=== PATIENT | male | born 1955 | race African-American/Black ===

== ENCOUNTER 2017-07-15 13:01 | Inpatient (IN) | payer OTHER ==
[2017-07-15 17:06] VITALS: BMI 26.6
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
[2017-07-15] MEDS ORDERED: guaiFENesin/D-METHORPHAN HB 10 ML UNIT-DOSE CUPS PO PRN (19:40)
[2017-07-15] MEDS ORDERED: hydrOXYzine PAMOATE 50 MG CAPSULE (FP) PO PRN (19:40)
[2017-07-15] MEDS ORDERED: P-EPHED 60MG/TRIPROLIDI 2.5MG TABLET PO PRN (19:40)
[2017-07-15] MEDS ORDERED: MAGNESIUM CITRATE 300 ML BOTTLE PO PRN (19:40)
[2017-07-15] MEDS ORDERED: NICOTINE POLACRILEX 2 MG GUM BC PRN (19:40)
[2017-07-15] MEDS ORDERED: MAG HYDROX/AL HYDROX/SIMETH 30 ML UNIT-DOSE CUP PO PRN (19:40)
[2017-07-15] MEDS ORDERED: LOPERAMIDE HCL 2 MG CAPSULE PO PRN (19:40)
[2017-07-15] MEDS ORDERED: MENTHOL/PHENOL 1 EACH UD MM PRN (19:40)
[2017-07-15] MEDS ORDERED: ACETAMINOPHEN 325 MG TABLET (FP) PO PRN (19:40)
[2017-07-15] MEDS ORDERED: MAGNESIUM HYDROX 2400MG/30ML ORAL SUSPENSION 30 ML CUP PO PRN (19:40)
[2017-07-15] MEDS ORDERED: TUBERCULIN PPD 5 TU/0.1ML VIAL ID ONE (20:49)
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
[2017-07-15] MEDS: THIAMINE HCL 100 MG TABLET (FP) PO SCH (22:20)
[2017-07-15] MEDS: diphenhydrAMINE HCL 50 MG CAPSULE PO PRN (22:20)
[2017-07-15 23:44] LABS: URINE APPEARANCE CLEAR; URINE BILIRUBIN NEGATIVE (NEGATIVE); URINE BLOOD NEGATIVE (NEGATIVE); URINE COLOR YELLOW; URINE GLUCOSE (UA) NEGATIVE (NEGATIVE); URINE KETONE NEGATIVE (NEGATIVE); URINE LEUK ESTERASE NEGATIVE (NEGATIVE); URINE NITRITE NEGATIVE (NEGATIVE); URINE PROTEIN NEGATIVE (NEGATIVE)
--- NOTE | 2017-07-16 09:21 | EKG ---
Test Reason : Blood Pressure : / mmHG Vent. Rate : 076 BPM Atrial Rate : 076 BPM P-R Int : 212 ms QRS Dur : 092 ms QT Int : 398 ms P-R-T Axes : 072 039 046 degrees QTc Int : 447 ms SINUS RHYTHM WITH 1ST DEGREE A-V BLOCK NO PREVIOUS ECGS AVAILABLE Confirmed by BRIDGET KOENIG MD ([id number]) on 07/16/2017 9:20:57 AM Referred By: Renetta Cruz Confirmed By:BRIDGET KOENIG MD
[2017-07-16] MEDS ORDERED: PATIENT'S OWN MEDICATION (NON-FORMULARY) (Ritonavir [Norvir -] 100 MG) PO SCH (10:00)
[2017-07-16] MEDS ORDERED: ABACAVIR SULFATE 600 MG PO SCH (10:00)
[2017-07-16 10:18] LABS: MCH 33.7 pg (25.7-33.7); MCHC 33.6 g/dl (32.0-35.9); MEAN CELL VOLUME 100.4 fl (80-96); MEAN PLT VOLUME 9.1 fl (7.5-11.1); PLATELET COUNT 89 K/MM3 (134-434); RDW 13.3 % (11.9-15.9); WHITE BLOOD COUNT 3.5 K/mm3 (4.0-10.0)
[2017-07-16] MEDS ORDERED: PATIENT'S OWN MEDICATION (NON-FORMULARY) (Atazanavir [Reyataz -] 300 MG) PO SCH (10:41)
[2017-07-16 11:40] LABS: ALBUMIN 2.5 g/dl (3.4-5.0); ALK PHOS 179 U/L (45-117); ANION GAP 10 (8-16); BILIRUBIN,TOTAL 0.9 mg/dL (0.2-1.0); CALCIUM 8.9 mg/dL (8.5-10.1); CO2 23 mmol/L (21-32); CREATININE 1.1 mg/dL (0.7-1.3); GLUCOSE,RANDOM 130 mg/dL (74-106); SGOT/AST 53 U/L (15-37); SGPT/ALT 33 U/L (12-78)
--- NOTE | 2017-07-16 12:08 | HP ---
Psychiatrist Admission - Data Date of interview: 07/16/17 Admission source: [facility] Identifying data: This is one of the several inpatient rehabilitation admissions for this 62 year old AA male who is unemployed and supported on SSI, domiciled residing in [place], he is a father of 5. Medical History: HIV since 2008 and Hep C, anemia and syphilis(treated years ago ).Smokes cigarettes when "I nahum high" 3-4 . Psychiatric History: Patient denies history of psychiatric treatment Physical/Sexual Abuse/Trauma History: Patient denies Vital Signs: Vital Signs - 24 hr 07/15/17 07/15/17 07/16/17 17:02 21:00 03:30 Temperature 97.9 F 98.2 F Pulse Rate 70 69 Respiratory 18 18 18 Rate Blood Pressure 130/80 150/97 07/16/17 06:59 Temperature 98.2 F Pulse Rate 64 Respiratory 18 Rate Blood Pressure 129/87 Allergies/Adverse Reactions: Allergies Allergy/AdvReac Type Severity Reaction Status Date / Time No Known Allergies Allergy Verified 07/15/17 19:07 Date of last physical exam: 07/15/17 Concur with the findings of this exam: Yes - Substance Abuse/Tx History Hx Alcohol Use: Yes (started atage of 20, daily 1/2 pint of vodka) Hx Substance Use: Yes Substance Use Type: Heroin (started at age of 14, dialy 2 bags.) Hx Substance Use Treatment: Yes Mental Status Exam - Mental Status Exam Alert and Oriented to: Time, Place, Person Cognitive Function: Good Patient Appearance: Well Groomed Mood: Sad Affect: Appropriate, Mood Congruent Patient Behavior: Appropriate, Cooperative Speech Pattern: Appropriate Voice Loudness: Normal Thought Process: Intact, Goal Oriented Thought Disorder: Not Present Hallucinations: Denies Suicidal Ideation: Denies Homicidal Ideation: None Insight/Judgement: Fair Sleep: Fair Appetite: Fair Muscle strength/Tone: Normal Gait/Station: Normal Psychiatric Findings - Problem List ([place] 1, 2,3) (1) Nicotine dependence Current Visit: Yes Status: Acute Qualifiers: Nicotine product type: cigarettes Substance use status: in withdrawal Qualified Code(s): F17.213 - Nicotine dependence, cigarettes, with withdrawal Comment: . (2) Alcohol dependence Current Visit: No Status: Acute Comment: . (3) Opioid dependence Current Visit: No Status: Acute Qualifiers: Substance use status: uncomplicated Qualified Code(s): F11.20 - Opioid dependence, uncomplicated Comment: . - Initial Treatment Plan Initial Treatment Plan: will continue monitor progress as needed.
[2017-07-16] MEDS: NICOTINE 14 MG/24 HOURS TOPICAL PATCH TD SCH (14:40)
[2017-07-16] MEDS: PRENATAL VITAMINS W/ FOLIC ACID TABLET (FP) PO SCH (14:40)
[2017-07-16] MEDS: NON-FORMULARY MED PO SCH (14:41)
[2017-07-16] MEDS: THIAMINE HCL 100 MG TABLET (FP) PO SCH (21:53)
[2017-07-16] MEDS: diphenhydrAMINE HCL 50 MG CAPSULE PO PRN (21:53)
[2017-07-17] MEDS: NICOTINE 14 MG/24 HOURS TOPICAL PATCH TD SCH (12:31)
[2017-07-17] MEDS: PATIENT'S OWN MEDICATION (NON-FORMULARY) (Atazanavir [Reyataz -] 300 MG) PO SCH (12:32)
[2017-07-17] MEDS: NON-FORMULARY MED PO SCH (12:32)
[2017-07-17] MEDS: PRENATAL VITAMINS W/ FOLIC ACID TABLET (FP) PO SCH (12:32)
[2017-07-17] MEDS: PATIENT'S OWN MEDICATION (NON-FORMULARY) (Ritonavir [Norvir -] 100 MG) PO SCH (12:33)
[2017-07-17] MEDS: diphenhydrAMINE HCL 50 MG CAPSULE PO PRN (21:27)
[2017-07-17] MEDS: THIAMINE HCL 100 MG TABLET (FP) PO SCH (21:27)
[2017-07-18] MEDS: NON-FORMULARY MED PO SCH (13:47)
[2017-07-18] MEDS: NICOTINE 14 MG/24 HOURS TOPICAL PATCH TD SCH (13:47)
[2017-07-18] MEDS: PRENATAL VITAMINS W/ FOLIC ACID TABLET (FP) PO SCH (13:47)
[2017-07-18] MEDS: PATIENT'S OWN MEDICATION (NON-FORMULARY) (Ritonavir [Norvir -] 100 MG) PO SCH (14:30)
[2017-07-18] MEDS: PATIENT'S OWN MEDICATION (NON-FORMULARY) (Atazanavir [Reyataz -] 300 MG) PO SCH (14:30)
[2017-07-18] MEDS: diphenhydrAMINE HCL 50 MG CAPSULE PO PRN (21:55)
[2017-07-18] MEDS: THIAMINE HCL 100 MG TABLET (FP) PO SCH (21:55)
[2017-07-19] MEDS: NICOTINE 14 MG/24 HOURS TOPICAL PATCH TD SCH (11:08)
[2017-07-19] MEDS: NON-FORMULARY MED PO SCH (11:09)
[2017-07-19] MEDS: PRENATAL VITAMINS W/ FOLIC ACID TABLET (FP) PO SCH (11:09)
[2017-07-19] MEDS: PATIENT'S OWN MEDICATION (NON-FORMULARY) (Atazanavir [Reyataz -] 300 MG) PO SCH (14:00)
[2017-07-19] MEDS: PATIENT'S OWN MEDICATION (NON-FORMULARY) (Ritonavir [Norvir -] 100 MG) PO SCH (14:00)
[2017-07-19] MEDS: diphenhydrAMINE HCL 50 MG CAPSULE PO PRN (21:41)
[2017-07-19] MEDS: THIAMINE HCL 100 MG TABLET (FP) PO SCH (21:42)
[2017-07-20] MEDS: NICOTINE 14 MG/24 HOURS TOPICAL PATCH TD SCH (10:51)
[2017-07-20] MEDS: NON-FORMULARY MED PO SCH (10:52)
[2017-07-20] MEDS: PRENATAL VITAMINS W/ FOLIC ACID TABLET (FP) PO SCH (10:52)
[2017-07-20] MEDS: PATIENT'S OWN MEDICATION (NON-FORMULARY) (Atazanavir [Reyataz -] 300 MG) PO SCH (13:11)
[2017-07-20] MEDS: PATIENT'S OWN MEDICATION (NON-FORMULARY) (Ritonavir [Norvir -] 100 MG) PO SCH (13:11)
[2017-07-20] MEDS: THIAMINE HCL 100 MG TABLET (FP) PO SCH (22:09)
[2017-07-20] MEDS: diphenhydrAMINE HCL 50 MG CAPSULE PO PRN (22:09)
[2017-07-21] MEDS: NON-FORMULARY MED PO SCH (12:45)
[2017-07-21] MEDS: PATIENT'S OWN MEDICATION (NON-FORMULARY) (Atazanavir [Reyataz -] 300 MG) PO SCH (12:47)
[2017-07-21] MEDS: NICOTINE 14 MG/24 HOURS TOPICAL PATCH TD SCH (12:47)
[2017-07-21] MEDS: PRENATAL VITAMINS W/ FOLIC ACID TABLET (FP) PO SCH (12:48)
[2017-07-21] MEDS: PATIENT'S OWN MEDICATION (NON-FORMULARY) (Ritonavir [Norvir -] 100 MG) PO SCH (12:48)
[2017-07-21] MEDS: diphenhydrAMINE HCL 50 MG CAPSULE PO PRN (22:24)
[2017-07-21] MEDS: THIAMINE HCL 100 MG TABLET (FP) PO SCH (22:25)
[2017-07-22] MEDS: NICOTINE 14 MG/24 HOURS TOPICAL PATCH TD SCH (10:59)
[2017-07-22] MEDS: PRENATAL VITAMINS W/ FOLIC ACID TABLET (FP) PO SCH (11:00)
[2017-07-22] MEDS: PATIENT'S OWN MEDICATION (NON-FORMULARY) (Atazanavir [Reyataz -] 300 MG) PO SCH (13:11)
[2017-07-22] MEDS: PATIENT'S OWN MEDICATION (NON-FORMULARY) (Ritonavir [Norvir -] 100 MG) PO SCH (13:11)
[2017-07-22] MEDS: NON-FORMULARY MED PO SCH (13:11)
[2017-07-22] MEDS: THIAMINE HCL 100 MG TABLET (FP) PO SCH (22:06)
[2017-07-22] MEDS: diphenhydrAMINE HCL 50 MG CAPSULE PO PRN (22:06)
[2017-07-23] MEDS: NICOTINE 14 MG/24 HOURS TOPICAL PATCH TD SCH (12:18)
[2017-07-23] MEDS: PRENATAL VITAMINS W/ FOLIC ACID TABLET (FP) PO SCH (12:18)
[2017-07-23] MEDS: PATIENT'S OWN MEDICATION (NON-FORMULARY) (Atazanavir [Reyataz -] 300 MG) PO SCH (14:43)
[2017-07-23] MEDS: NON-FORMULARY MED PO SCH (14:44)
[2017-07-23] MEDS: PATIENT'S OWN MEDICATION (NON-FORMULARY) (Ritonavir [Norvir -] 100 MG) PO SCH (14:44)
[2017-07-23] MEDS: IBUPROFEN 400 MG TABLET (FP) PO PRN (22:10)
[2017-07-23] MEDS: diphenhydrAMINE HCL 50 MG CAPSULE PO PRN (22:10)
[2017-07-23] MEDS: THIAMINE HCL 100 MG TABLET (FP) PO SCH (22:11)
[2017-07-24] MEDS: PRENATAL VITAMINS W/ FOLIC ACID TABLET (FP) PO SCH (10:52)
[2017-07-24] MEDS: NICOTINE 14 MG/24 HOURS TOPICAL PATCH TD SCH (10:52)
[2017-07-24] MEDS: PATIENT'S OWN MEDICATION (NON-FORMULARY) (Atazanavir [Reyataz -] 300 MG) PO SCH (14:43)
[2017-07-24] MEDS: NON-FORMULARY MED PO SCH (14:44)
[2017-07-24] MEDS: PATIENT'S OWN MEDICATION (NON-FORMULARY) (Ritonavir [Norvir -] 100 MG) PO SCH (14:44)
[2017-07-24] MEDS: THIAMINE HCL 100 MG TABLET (FP) PO SCH (21:45)
[2017-07-24] MEDS: diphenhydrAMINE HCL 50 MG CAPSULE PO PRN (21:45)
[2017-07-25] MEDS: PRENATAL VITAMINS W/ FOLIC ACID TABLET (FP) PO SCH (10:41)
[2017-07-25] MEDS: NICOTINE 14 MG/24 HOURS TOPICAL PATCH TD SCH (10:41)
[2017-07-25] MEDS: PATIENT'S OWN MEDICATION (NON-FORMULARY) (Ritonavir [Norvir -] 100 MG) PO SCH (14:59)
[2017-07-25] MEDS: NON-FORMULARY MED PO SCH (14:59)
[2017-07-25] MEDS: PATIENT'S OWN MEDICATION (NON-FORMULARY) (Atazanavir [Reyataz -] 300 MG) PO SCH (14:59)
[2017-07-25] MEDS: THIAMINE HCL 100 MG TABLET (FP) PO SCH (22:02)
[2017-07-25] MEDS: diphenhydrAMINE HCL 50 MG CAPSULE PO PRN (22:02)
[2017-07-26] MEDS: PRENATAL VITAMINS W/ FOLIC ACID TABLET (FP) PO SCH (11:00)
[2017-07-26] MEDS: NICOTINE 14 MG/24 HOURS TOPICAL PATCH TD SCH (11:00)
[2017-07-26] MEDS: PATIENT'S OWN MEDICATION (NON-FORMULARY) (Atazanavir [Reyataz -] 300 MG) PO SCH (13:52)
[2017-07-26] MEDS: NON-FORMULARY MED PO SCH (13:52)
[2017-07-26] MEDS: PATIENT'S OWN MEDICATION (NON-FORMULARY) (Ritonavir [Norvir -] 100 MG) PO SCH (13:53)
[2017-07-26] MEDS: THIAMINE HCL 100 MG TABLET (FP) PO SCH (22:24)
[2017-07-26] MEDS: diphenhydrAMINE HCL 50 MG CAPSULE PO PRN (22:24)
--- NOTE | 2017-07-26 23:06 | PN ---
[facility] Progress Note Note: RECEIVED NURSE CALL THAT THE PATIENT NEEDS A PITCHER CONTINUE REHAB
[2017-07-27] MEDS: PRENATAL VITAMINS W/ FOLIC ACID TABLET (FP) PO SCH (10:36)
[2017-07-27] MEDS: NICOTINE 14 MG/24 HOURS TOPICAL PATCH TD SCH (10:36)
[2017-07-27] MEDS: NON-FORMULARY MED PO SCH (13:27)
[2017-07-27] MEDS: PATIENT'S OWN MEDICATION (NON-FORMULARY) (Ritonavir [Norvir -] 100 MG) PO SCH (13:27)
[2017-07-27] MEDS: PATIENT'S OWN MEDICATION (NON-FORMULARY) (Atazanavir [Reyataz -] 300 MG) PO SCH (13:28)
[2017-07-27] MEDS: THIAMINE HCL 100 MG TABLET (FP) PO SCH (21:57)
[2017-07-27] MEDS: diphenhydrAMINE HCL 50 MG CAPSULE PO PRN (21:58)
[2017-07-28] MEDS: PRENATAL VITAMINS W/ FOLIC ACID TABLET (FP) PO SCH (10:14)
[2017-07-28] MEDS: NICOTINE 14 MG/24 HOURS TOPICAL PATCH TD SCH (10:14)
[2017-07-28] MEDS: PATIENT'S OWN MEDICATION (NON-FORMULARY) (Ritonavir [Norvir -] 100 MG) PO SCH (12:53)
[2017-07-28] MEDS: PATIENT'S OWN MEDICATION (NON-FORMULARY) (Atazanavir [Reyataz -] 300 MG) PO SCH (12:53)
[2017-07-28] MEDS: NON-FORMULARY MED PO SCH (12:53)
[2017-07-28] MEDS: IBUPROFEN 400 MG TABLET (FP) PO PRN (19:05)
[2017-07-28] MEDS: diphenhydrAMINE HCL 50 MG CAPSULE PO PRN (21:58)
[2017-07-28] MEDS: THIAMINE HCL 100 MG TABLET (FP) PO SCH (21:58)
[2017-07-29] MEDS: NICOTINE 14 MG/24 HOURS TOPICAL PATCH TD SCH (10:12)
[2017-07-29] MEDS: PRENATAL VITAMINS W/ FOLIC ACID TABLET (FP) PO SCH (10:12)
[2017-07-29] MEDS: NON-FORMULARY MED PO SCH (13:02)
[2017-07-29] MEDS: PATIENT'S OWN MEDICATION (NON-FORMULARY) (Ritonavir [Norvir -] 100 MG) PO SCH (13:02)
[2017-07-29] MEDS: PATIENT'S OWN MEDICATION (NON-FORMULARY) (Atazanavir [Reyataz -] 300 MG) PO SCH (13:02)
[2017-07-29] MEDS: IBUPROFEN 400 MG TABLET (FP) PO PRN (17:01)
[2017-07-29] MEDS: THIAMINE HCL 100 MG TABLET (FP) PO SCH (22:01)
[2017-07-29] MEDS: diphenhydrAMINE HCL 50 MG CAPSULE PO PRN (22:01)
[2017-07-30] MEDS: NICOTINE 14 MG/24 HOURS TOPICAL PATCH TD SCH (10:40)
[2017-07-30] MEDS: PRENATAL VITAMINS W/ FOLIC ACID TABLET (FP) PO SCH (10:40)
[2017-07-30] MEDS: PATIENT'S OWN MEDICATION (NON-FORMULARY) (Ritonavir [Norvir -] 100 MG) PO SCH (12:44)
[2017-07-30] MEDS: PATIENT'S OWN MEDICATION (NON-FORMULARY) (Atazanavir [Reyataz -] 300 MG) PO SCH (12:44)
[2017-07-30] MEDS: NON-FORMULARY MED PO SCH (12:44)
[2017-07-30] MEDS: diphenhydrAMINE HCL 50 MG CAPSULE PO PRN (21:55)
[2017-07-30] MEDS: THIAMINE HCL 100 MG TABLET (FP) PO SCH (21:55)
[2017-07-31] MEDS: PRENATAL VITAMINS W/ FOLIC ACID TABLET (FP) PO SCH (09:13)
[2017-07-31] MEDS: NICOTINE 14 MG/24 HOURS TOPICAL PATCH TD SCH (09:13)
[2017-07-31] MEDS: PATIENT'S OWN MEDICATION (NON-FORMULARY) (Atazanavir [Reyataz -] 300 MG) PO SCH (13:12)
[2017-07-31] MEDS: PATIENT'S OWN MEDICATION (NON-FORMULARY) (Ritonavir [Norvir -] 100 MG) PO SCH (13:12)
[2017-07-31] MEDS: NON-FORMULARY MED PO SCH (13:12)
[2017-07-31] MEDS: THIAMINE HCL 100 MG TABLET (FP) PO SCH (21:59)
[2017-07-31] MEDS: diphenhydrAMINE HCL 50 MG CAPSULE PO PRN (21:59)
[2017-08-01] MEDS: PRENATAL VITAMINS W/ FOLIC ACID TABLET (FP) PO SCH (09:04)
[2017-08-01] MEDS: NICOTINE 14 MG/24 HOURS TOPICAL PATCH TD SCH (09:04)
[2017-08-01] MEDS: PATIENT'S OWN MEDICATION (NON-FORMULARY) (Ritonavir [Norvir -] 100 MG) PO SCH (13:22)
[2017-08-01] MEDS: PATIENT'S OWN MEDICATION (NON-FORMULARY) (Atazanavir [Reyataz -] 300 MG) PO SCH (13:22)
[2017-08-01] MEDS: NON-FORMULARY MED PO SCH (13:22)
[2017-08-01] MEDS: IBUPROFEN 400 MG TABLET (FP) PO PRN (15:45)
[2017-08-01] MEDS: THIAMINE HCL 100 MG TABLET (FP) PO SCH (21:24)
[2017-08-01] MEDS: diphenhydrAMINE HCL 50 MG CAPSULE PO PRN (21:24)
[2017-08-02] MEDS: PRENATAL VITAMINS W/ FOLIC ACID TABLET (FP) PO SCH (11:39)
[2017-08-02] MEDS: NICOTINE 14 MG/24 HOURS TOPICAL PATCH TD SCH (11:39)
[2017-08-02] MEDS: PATIENT'S OWN MEDICATION (NON-FORMULARY) (Ritonavir [Norvir -] 100 MG) PO SCH (13:17)
[2017-08-02] MEDS: PATIENT'S OWN MEDICATION (NON-FORMULARY) (Atazanavir [Reyataz -] 300 MG) PO SCH (13:18)
[2017-08-02] MEDS: NON-FORMULARY MED PO SCH (13:18)
[2017-08-02] MEDS: diphenhydrAMINE HCL 50 MG CAPSULE PO PRN (21:56)
[2017-08-02] MEDS: THIAMINE HCL 100 MG TABLET (FP) PO SCH (21:56)
[2017-08-03] MEDS: PRENATAL VITAMINS W/ FOLIC ACID TABLET (FP) PO SCH (10:33)
[2017-08-03] MEDS: NICOTINE 14 MG/24 HOURS TOPICAL PATCH TD SCH (10:33)
[2017-08-03] MEDS ORDERED: SIMETHICONE 80 MG TAB.CHEW (FP) PO PRN (11:08)
[2017-08-03] MEDS: RANITIDINE HCL 150 MG TABLET (FP) PO SCH ×2 (13:11→22:08)
[2017-08-03] MEDS: PATIENT'S OWN MEDICATION (NON-FORMULARY) (Atazanavir [Reyataz -] 300 MG) PO SCH (13:12)
[2017-08-03] MEDS: NON-FORMULARY MED PO SCH (13:12)
[2017-08-03] MEDS: PATIENT'S OWN MEDICATION (NON-FORMULARY) (Ritonavir [Norvir -] 100 MG) PO SCH (13:12)
[2017-08-03] MEDS: diphenhydrAMINE HCL 50 MG CAPSULE PO PRN (22:08)
[2017-08-03] MEDS: THIAMINE HCL 100 MG TABLET (FP) PO SCH (22:08)
[2017-08-04] MEDS: RANITIDINE HCL 150 MG TABLET (FP) PO SCH ×2 (10:59→21:47)
[2017-08-04] MEDS: PRENATAL VITAMINS W/ FOLIC ACID TABLET (FP) PO SCH (11:17)
[2017-08-04] MEDS: NICOTINE 14 MG/24 HOURS TOPICAL PATCH TD SCH (11:17)
[2017-08-04] MEDS: PATIENT'S OWN MEDICATION (NON-FORMULARY) (Atazanavir [Reyataz -] 300 MG) PO SCH (14:00)
[2017-08-04] MEDS: NON-FORMULARY MED PO SCH (14:00)
[2017-08-04] MEDS: PATIENT'S OWN MEDICATION (NON-FORMULARY) (Ritonavir [Norvir -] 100 MG) PO SCH (14:00)
[2017-08-04] MEDS: THIAMINE HCL 100 MG TABLET (FP) PO SCH (21:47)
[2017-08-04] MEDS: diphenhydrAMINE HCL 50 MG CAPSULE PO PRN (21:47)
[2017-08-05] MEDS: RANITIDINE HCL 150 MG TABLET (FP) PO SCH ×2 (10:23→21:49)
[2017-08-05] MEDS: NICOTINE 14 MG/24 HOURS TOPICAL PATCH TD SCH (10:23)
[2017-08-05] MEDS: PRENATAL VITAMINS W/ FOLIC ACID TABLET (FP) PO SCH (10:24)
[2017-08-05] MEDS: NON-FORMULARY MED PO SCH (13:32)
[2017-08-05] MEDS: PATIENT'S OWN MEDICATION (NON-FORMULARY) (Atazanavir [Reyataz -] 300 MG) PO SCH (13:32)
[2017-08-05] MEDS: PATIENT'S OWN MEDICATION (NON-FORMULARY) (Ritonavir [Norvir -] 100 MG) PO SCH (13:32)
[2017-08-05] MEDS: diphenhydrAMINE HCL 50 MG CAPSULE PO PRN (21:49)
[2017-08-05] MEDS: THIAMINE HCL 100 MG TABLET (FP) PO SCH (21:49)
[2017-08-06] MEDS: RANITIDINE HCL 150 MG TABLET (FP) PO SCH ×2 (10:51→21:51)
[2017-08-06] MEDS: PRENATAL VITAMINS W/ FOLIC ACID TABLET (FP) PO SCH (10:51)
[2017-08-06] MEDS: NICOTINE 14 MG/24 HOURS TOPICAL PATCH TD SCH (10:51)
[2017-08-06] MEDS: IBUPROFEN 400 MG TABLET (FP) PO PRN (12:14)
[2017-08-06] MEDS: NON-FORMULARY MED PO SCH (13:15)
[2017-08-06] MEDS: PATIENT'S OWN MEDICATION (NON-FORMULARY) (Atazanavir [Reyataz -] 300 MG) PO SCH (13:15)
[2017-08-06] MEDS: PATIENT'S OWN MEDICATION (NON-FORMULARY) (Ritonavir [Norvir -] 100 MG) PO SCH (13:16)
[2017-08-06] MEDS: diphenhydrAMINE HCL 50 MG CAPSULE PO PRN (21:51)
[2017-08-06] MEDS: THIAMINE HCL 100 MG TABLET (FP) PO SCH (21:52)
[2017-08-07] MEDS: PRENATAL VITAMINS W/ FOLIC ACID TABLET (FP) PO SCH (11:02)
[2017-08-07] MEDS: NICOTINE 14 MG/24 HOURS TOPICAL PATCH TD SCH (11:02)
[2017-08-07] MEDS: RANITIDINE HCL 150 MG TABLET (FP) PO SCH ×2 (11:02→21:56)
[2017-08-07] MEDS: NON-FORMULARY MED PO SCH (13:26)
[2017-08-07] MEDS: PATIENT'S OWN MEDICATION (NON-FORMULARY) (Ritonavir [Norvir -] 100 MG) PO SCH (13:27)
[2017-08-07] MEDS: PATIENT'S OWN MEDICATION (NON-FORMULARY) (Atazanavir [Reyataz -] 300 MG) PO SCH (13:27)
[2017-08-07] MEDS: IBUPROFEN 400 MG TABLET (FP) PO PRN (17:31)
[2017-08-07] MEDS: diphenhydrAMINE HCL 50 MG CAPSULE PO PRN (21:56)
[2017-08-07] MEDS: THIAMINE HCL 100 MG TABLET (FP) PO SCH (21:57)
[2017-08-08] MEDS: NICOTINE 14 MG/24 HOURS TOPICAL PATCH TD SCH (10:38)
[2017-08-08] MEDS: PRENATAL VITAMINS W/ FOLIC ACID TABLET (FP) PO SCH (10:39)
[2017-08-08] MEDS: RANITIDINE HCL 150 MG TABLET (FP) PO SCH ×2 (10:39→21:42)
[2017-08-08] MEDS: PATIENT'S OWN MEDICATION (NON-FORMULARY) (Atazanavir [Reyataz -] 300 MG) PO SCH (13:13)
[2017-08-08] MEDS: PATIENT'S OWN MEDICATION (NON-FORMULARY) (Ritonavir [Norvir -] 100 MG) PO SCH (13:13)
[2017-08-08] MEDS: NON-FORMULARY MED PO SCH (13:13)
[2017-08-08] MEDS: IBUPROFEN 400 MG TABLET (FP) PO PRN (15:43)
[2017-08-08] MEDS: THIAMINE HCL 100 MG TABLET (FP) PO SCH (21:01)
[2017-08-08] MEDS: diphenhydrAMINE HCL 50 MG CAPSULE PO PRN (21:42)
[2017-08-09] MEDS: NICOTINE 14 MG/24 HOURS TOPICAL PATCH TD SCH (10:37)
[2017-08-09] MEDS: PRENATAL VITAMINS W/ FOLIC ACID TABLET (FP) PO SCH (10:37)
[2017-08-09] MEDS: RANITIDINE HCL 150 MG TABLET (FP) PO SCH ×2 (10:37→21:59)
[2017-08-09] MEDS: NON-FORMULARY MED PO SCH (13:11)
[2017-08-09] MEDS: PATIENT'S OWN MEDICATION (NON-FORMULARY) (Ritonavir [Norvir -] 100 MG) PO SCH (13:11)
[2017-08-09] MEDS: PATIENT'S OWN MEDICATION (NON-FORMULARY) (Atazanavir [Reyataz -] 300 MG) PO SCH (13:11)
[2017-08-09] MEDS: IBUPROFEN 400 MG TABLET (FP) PO PRN (17:56)
[2017-08-09] MEDS: diphenhydrAMINE HCL 50 MG CAPSULE PO PRN (21:58)
[2017-08-09] MEDS: THIAMINE HCL 100 MG TABLET (FP) PO SCH (21:59)
[2017-08-09] MEDS ORDERED: ABACAVIR SULFATE 300 MG TABLET PO SCH (22:00)
[2017-08-10] MEDS: NICOTINE 14 MG/24 HOURS TOPICAL PATCH TD SCH (10:14)
[2017-08-10] MEDS: PRENATAL VITAMINS W/ FOLIC ACID TABLET (FP) PO SCH (10:14)
[2017-08-10] MEDS: RANITIDINE HCL 150 MG TABLET (FP) PO SCH ×2 (10:15→21:38)
[2017-08-10] MEDS: RITONAVIR 100 MG TABLET PO SCH (12:52)
[2017-08-10] MEDS: ABACAVIR SULFATE 300 MG TABLET PO SCH (12:53)
[2017-08-10] MEDS: ATAZANAVIR SO4 300 MG CAPSULE PO SCH (12:53)
[2017-08-10] MEDS: IBUPROFEN 400 MG TABLET (FP) PO PRN (14:52)
[2017-08-10] MEDS: diphenhydrAMINE HCL 50 MG CAPSULE PO PRN (21:37)
[2017-08-10] MEDS: THIAMINE HCL 100 MG TABLET (FP) PO SCH (21:37)
[2017-08-11 07:30] VITALS: TEMP 97.7
[2017-08-11] MEDS: NICOTINE 14 MG/24 HOURS TOPICAL PATCH TD SCH (10:44)
[2017-08-11] MEDS: PRENATAL VITAMINS W/ FOLIC ACID TABLET (FP) PO SCH (10:45)
[2017-08-11] MEDS: RANITIDINE HCL 150 MG TABLET (FP) PO SCH ×2 (10:45→21:41)
[2017-08-11] MEDS: RITONAVIR 100 MG TABLET PO SCH (13:42)
[2017-08-11] MEDS: ABACAVIR SULFATE 300 MG TABLET PO SCH (13:42)
[2017-08-11] MEDS: ATAZANAVIR SO4 300 MG CAPSULE PO SCH (13:42)
[2017-08-11] MEDS: IBUPROFEN 400 MG TABLET (FP) PO PRN (17:38)
[2017-08-11] MEDS: THIAMINE HCL 100 MG TABLET (FP) PO SCH (21:41)
[2017-08-11] MEDS: diphenhydrAMINE HCL 50 MG CAPSULE PO PRN (21:41)
[2017-08-12 07:34] VITALS: BP 134/89; PULSE 70
[2017-08-12] MEDS: RANITIDINE HCL 150 MG TABLET (FP) PO SCH (09:09)
[2017-08-12] MEDS: PRENATAL VITAMINS W/ FOLIC ACID TABLET (FP) PO SCH (09:09)
[2017-08-12] MEDS: NICOTINE 14 MG/24 HOURS TOPICAL PATCH TD SCH (09:09)
--- NOTE | 2017-08-12 09:16 | PN ---
Psychiatric Progress Note Vital Signs: Vital Signs Period Temp Pulse Resp BP Sys/Sales Pulse Ox Last 24 Hr 97.7 F 70 16-18 134/89 Date of Session: 08/12/17 Chief Complaint:: discharge visit Current Medications: Active Medications Generic Name Dose Route Start Last Admin Trade Name Freq PRN Reason Stop Dose Admin Abacavir Sulfate 600 mg 08/10/17 13:00 08/11/17 13:42 Ziagen - PO 600 mg DAILY@1300 [facility] Administration Acetaminophen 650 mg 07/15/17 19:40 07/22/17 22:07 Tylenol - PO 650 mg Q4H PRN Administration PAIN Atazanavir 300 mg 08/10/17 13:00 08/11/17 13:42 Reyataz - PO 300 mg DAILY@1300 [facility] Administration Diphenhydramine HCl 50 mg 07/15/17 19:40 08/11/17 21:41 Benadryl - PO 50 mg HSMR1 PRN Administration INSOMNIA Eucalyptus/Menthol/Phenol/Sorbitol 1 each 07/15/17 19:40 Cepastat Lozenge - MM Q4H PRN SORE THROAT Guaifenesin 10 ml 07/15/17 19:40 Robitussin Dm - PO Q6H PRN COUGH Hydroxyzine Pamoate 50 mg 07/15/17 19:40 Vistaril - PO Q4H PRN AGITATION Ibuprofen 400 mg 07/15/17 19:40 08/11/17 17:38 Motrin - PO 400 mg Q6H PRN Administration SEVERE PAIN Lamivudine 300 mg 08/10/17 13:00 08/11/17 13:42 Epivir - PO 300 mg DAILY@1300 [facility] Administration Loperamide HCl 4 mg 07/15/17 19:40 Imodium - PO Q6H PRN DIARRHEA Magnesium Citrate 300 ml 07/15/17 19:40 Citroma - PO Q48H PRN CONSTIPATION Magnesium Hydroxide 30 ml 07/15/17 19:40 Milk Of Magnesia - PO DAILY PRN CONSTIPATION Nicotine 14 mg 07/16/17 10:00 08/12/17 09:09 Nicoderm Patch - TD Not Given DAILY ANNE MARIE Nicotine Polacrilex 2 mg 07/15/17 19:40 Nicorette Gum - BC Q2H PRN NICOTINE REPLACEMENT RX Multivit/Folic Acid/Iron 1 tab 07/16/17 10:00 08/12/17 09:09 Vitamins (Sjr) - PO Not Given DAILY ANNE MARIE Pseudoephedrine/Triprolidine 1 combo 07/15/17 19:40 Actifed - PO TID PRN NASAL CONGESTION Ranitidine HCl 150 mg 08/03/17 11:15 08/12/17 09:09 Zantac - PO Not Given BID ANNE MARIE Ritonavir 100 mg 08/10/17 13:00 08/11/17 13:42 Norvir - PO 100 mg DAILY@1300 [facility] Administration Simethicone 80 mg 08/03/17 11:08 Mylicon - PO Q4H PRN INDIGESTION Thiamine HCl 100 mg 07/15/17 22:00 08/11/17 21:41 Vitamin B1 - PO Not Given HS [facility] Current Side Effect: No Lab tests ordered: No Lab tests reviewed: Yes Provider note:: Patient has completed his program today and met his treatment goals.He will continue to address his issues in outpatient setting at [facility]. Patient is motivated to continue maintain recovery. Patient unedrstands the negative consequences of substance abuse and its impact on various avenues of life. Patient focused on the recognition of behaviors that can lead to relapses. MSE completed.Patient is stable for discharge today. Total face to face time:: 25 Psychiatric Treatment Plan - Problem List (1) Nicotine dependence Current Visit: Yes Qualifiers: Nicotine product type: cigarettes Substance use status: in withdrawal Qualified Code(s): F17.213 - Nicotine dependence, cigarettes, with withdrawal; F17.213 - Nicotine dependence, cigarettes, with withdrawal Comment: . (2) Alcohol dependence Current Visit: No Comment: . (3) Opioid dependence Current Visit: No Qualifiers: Substance use status: uncomplicated Qualified Code(s): F11.20 - Opioid dependence, uncomplicated; F11.20 - Opioid dependence, uncomplicated; F11.20 - Opioid dependence, uncomplicated Comment: .
== END 2017-08-12 10:00 | disposition home or self-care (01) | DRG 895 ==
LOC: YASAS 13:01 → Y5N 19:43
PROVIDERS: ADMIT Psychiatry & Neurology Psychiatry; ATTEND Psychiatry & Neurology Psychiatry
PROC: HZ42ZZZ Group Counseling for Substance Abuse Treatment, Cognitive-Behavioral (ICD-10-PCS; principal; 2017-07-15)
DX: F11.23 Opioid dependence with withdrawal (principal); F10.230 Alcohol dependence with withdrawal, uncomplicated; F17.213 Nicotine dependence, cigarettes, with withdrawal; Z21 Asymptomatic human immunodeficiency virus [HIV] infection status; B18.2 Chronic viral hepatitis C; Z87.438 Personal history of other diseases of male genital organs
CPT/HCPCS: 36415; 80053; 81003; 85027; 86593; 93005; 93010